=== PATIENT | female | born 1945 | race Caucasian/White ===

== ENCOUNTER 2020-08-17 09:58 | Inpatient (IN) ==
[2020-08-12 15:18] LABS: Basophils # (Auto) 0.04 K/mcL (0.00-0.20); Basophils % (Auto) 0.5 % (0.0-2.0); Eosinophils # (Auto) 0.12 K/mcL (0.00-0.70); Eosinophils % (Auto) 1.4 % (0.0-7.0); Hematocrit 38.4 % (36.0-48.0); Hemoglobin 12.7 g/dL (12.0-15.0); Lymphocytes # (Auto) 2.26 K/mcL (1.50-4.80); Lymphocytes % (Auto) 26.8 % (15.0-49.0); Mean Cell Volume 93.4 fL (80.0-100.0); Mean Corpuscular HGB Conc 33.1 g/dL (31.0-36.0); Mean Platelet Volume 11.8 fL (7.4-10.4); Monocytes # (Auto) 0.85 K/mcL (0.10-0.90); Monocytes % (Auto) 10.1 % (1.0-12.0); Neutrophils % (Auto) 61.2 % (38.0-78.0); Platelet Count 245 K/mcL (140-440); RBC 4.11 M/mcL (4.00-5.20); Red Cell Distribution Width 12.2 % (11.5-14.5); WBC 8.4 K/mcL (4.5-11.0)
[2020-08-12 15:51] LABS: Appearance,Urine CLEAR (Clear); Bilirubin,Urine Negative (Negative); Color,Urine YELLOW; Culture Indicated,Urine No; Glucose,Urine (UA) Negative (Negative); Ketones,Urine Negative (Negative); Leukocyte Esterase,Urine Negative /ug (Negative); Nitrate,Urine Negative (Negative); Protein,Urine Negative (Negative); Specific Gravity,Urine 1.009 (1.000-1.035); Urine Blood Negative (Negative); Urobilinogen,Urine Negative
[2020-08-12 16:52] LABS: Blood Urea Nitrogen 11 mg/dL (8-23); Calcium 9.5 mg/dL (8.6-10.4); Carbon Dioxide 23 mmol/L (22-30); Chloride 102 mmol/L (96-108); Glomerular Filtration Rate 90; Glucose 89 mg/dL (70-105)
[~2020-08-17 09:58] MED LIST: ACETAMINOPHEN 500 MG TABLET PO SCH; PREGABALIN 75 MG CAPSULE PO SCH; SCOPOLAMINE 1 PATCH PATCH TOPICAL PRN; oxyCODONE 10 MG TAB.ER.12H PO SCH
[2020-08-17] MEDS ORDERED: IPRATROPIUM/ALBUTEROL 3 ML AMPUL.NEB NEB PRN ×2 (10:30→12:30)
[2020-08-17] MEDS ORDERED: SCOPOLAMINE 1 PATCH PATCH TOPICAL PRN (10:30)
[2020-08-17] MEDS ORDERED: ceFAZolin 2 GM in DEXTROSE 5% IN WATER 50 ML IV SCH (11:00)
[2020-08-17] MEDS ORDERED: LIDOCAINE HCL/PF 100 MG/5 ML SYRINGE IV ONE (11:35)
[2020-08-17] MEDS ORDERED: ROPIVACAINE HCL/PF 30 ML VIAL IJ ONE (11:35)
[2020-08-17] MEDS ORDERED: fentaNYL 250 MCG/5 ML VIAL IV ONE (11:35)
[2020-08-17] MEDS ORDERED: DEXAMETHASONE 10 MG/ML VIAL ONE (11:35)
[2020-08-17] MEDS ORDERED: PROPOFOL 200 MG/20 ML VIAL IV ONE (11:35)
[2020-08-17] MEDS ORDERED: TRANEXAMIC ACID 1,000 MG/10 ML VIAL IV ONE ×2 (11:35→12:36)
[2020-08-17] MEDS ORDERED: SUCCINYLCHOLINE 20 MG/ML ML IV ONE (11:35)
[2020-08-17] MEDS ORDERED: KETAMINE 100 MG/ML ML ONE (11:35)
[2020-08-17] MEDS ORDERED: ONDANSETRON 4 MG/2 ML VIAL ONE (11:35)
[2020-08-17] MEDS ORDERED: ePHEDrine 50 MG/ML AMPUL IV ONE (11:35)
[2020-08-17] MEDS ORDERED: LACTATED RINGERS 1,000 ML IV SCH (12:30)
[2020-08-17] MEDS ORDERED: fentaNYL 100 MCG/2 ML VIAL IV PRN (12:30)
[2020-08-17] MEDS ORDERED: LACTATED RINGERS 250 ML IV PRN (12:30)
[2020-08-17] MEDS ORDERED: PROMETHAZINE 25 MG/ML VIAL IV PRN (12:30)
[2020-08-17] MEDS ORDERED: NALOXONE HCL 0.4 MG/ML VIAL IV PRN (12:30)
[2020-08-17] MEDS ORDERED: diphenhydrAMINE 50 MG/ML VIAL IV PRN (12:30)
[2020-08-17] MEDS ORDERED: MEPERIDINE 25 MG/ML SYRINGE IV PRN (12:30)
[2020-08-17] MEDS ORDERED: ONDANSETRON 4 MG/2 ML VIAL IV PRN ×2 (12:30→12:36)
[2020-08-17] MEDS ORDERED: ACETAMINOPHEN 325 MG TABLET PO PRN (12:36)
[2020-08-17] MEDS ORDERED: HYDROcodone/APAP 10/325MG TABLET PO PRN (12:36)
[2020-08-17] MEDS ORDERED: POLYETHYLENE GLYCOL 3350 17 GM PACKET PO PRN (12:36)
[2020-08-17] MEDS ORDERED: BISACODYL 10 MG SUPP.RECT PR PRN (12:36)
[2020-08-17] MEDS ORDERED: MAGNESIUM HYDROXIDE 30 ML ORAL.SUSP PO PRN (12:36)
[2020-08-17] MEDS ORDERED: KETOROLAC 15 MG/ML VIAL IV PRN (12:36)
[2020-08-17] MEDS ORDERED: TEMAZEPAM 15 MG CAPSULE PO PRN (12:36)
[2020-08-17] MEDS ORDERED: FLEETS ADULT ENEMA PR PRN (12:36)
[2020-08-17] MEDS ORDERED: HYDROmorphone 1 MG/ML SYRINGE IV PRN (12:36)
--- NOTE | 2020-08-17 12:36 | Brief Operative Note ---
Brief Operative Note Date of procedure: 08/17/20 Pre-op diagnosis: right shoulder rca and bicep tendonopathy Post-op diagnosis: same Procedure: Right reverse tsa with bicep tenodesis Grafts/Implants: Yes Anesthesia: GETA Complications: none Surgeon: Marin Vinson Ladies Attendant: Michi Olivas Estimated blood loss (cc): 100 Tourniquet Time (Minutes): 0 Specimens Removed/Pathology: none sent Condition: stable Disposition: PACU
--- NOTE | 2020-08-17 12:47 | Discharge Plan ---
Discharge Instructions - TSA Patient Instructions Total Shoulder Protocol: Leave immobilizer in place except for bathing and ROM. Abduction pillow. Continue to wear sling until seen by physician. Codman Pendulum : These exercises use momentum produced by your body to move your shoulder joint. Bend your knees and shift your weight to your front leg, then back, allowing your arm to swing in the same directions. Using the same technique, alternately shift your weight between your right and left legs, allowing your arm to swing from side to side. These exercises are also performed in counterclockwise and clockwise circular motions. Typically these exercises are performed several times per day, for a set number repetitions or minutes, such as 20 times in a row or 5 minutes at a time. Discharge Plan Patient/Caregiver Discharge Instructions Activity: as per physical therapy Prescriptions: New hydrocodone-acetaminophen 10-325 mg Tablet 1 - 2 tab PO Q4HP PRN (Reason: Pain Level 3-6) Qty: 75 RF: 0 docusate sodium 100 mg Capsule 100 mg PO BID Qty: 60 RF: 0 No Action atorvastatin 20 mg Tablet 20 mg PO QHS RF: 0 acyclovir 400 mg Tablet 400 mg PO QDAY RF: 0 leflunomide [Arava] 20 mg Tablet 20 mg PO QDAY RF: 0 tramadol 50 mg Tablet 50 mg PO DAILYP PRN (Reason: Pain) RF: 0 levothyroxine [Synthroid] 25 mcg Tablet 25 mcg PO QDAY RF: 0 calcium carbonate 500 mg calcium (1,250 mg) Tablet 1,000 mg PO QDAY RF: 0 triamterene-hydrochlorothiazid 37.5-25 mg Tablet 1 tab PO QDAY RF: 0 aspirin 81 mg Tablet,Chewable 81 mg PO QDAY RF: 0 vitamin B complex Tablet 1 tab PO QDAY RF: 0 montelukast [Singulair] 10 mg Tablet 10 mg PO QHS RF: 0 Rituxan 10 mg/mL Concentrate IV RF: 0 cholecalciferol (vitamin D3) [Vitamin D3] 25 mcg (1,000 unit) Tablet 25 mcg PO QDAY RF: 0 Other Ambulatory Orders: Brace/Splint (ONCE) Location: None Selected Ordered By: Michi Olivas Physical Therapy DC - TSA (Routine) Location: None Selected Ordered By: Michi Olivas Follow Up Plan Follow up with: Michi Olivas PA-C [Physician Boomswing Operator] - 09/01/20 11:20 am Patient Disposition: Home, Self-Care Prognosis: Good Rehab Potential: Good I certify that the patient requires SNF services: No Overall status at discharge: patient is progressing back to baseline Discharge Orders: Discharge Order (Routine); Ordered 08/18/20 Ordered By: Michi Olivas
--- NOTE | 2020-08-17 12:55 | Operative Note ---
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 PROCEDURE: Right reverse total shoulder with a biceps tenodesis. SURGEON: Marin Vinson M.D. FOOD AND NUTRITION SUPERVISOR: Michi Olivas PA-C. The PA's assistance was required for the safe and efficient completion of the entire case. This provider's expertise and technical skill were required throughout the case. The PA assisted with preoperative coordination, intraoperative retraction, wound closure, dressing and splint application, as well as postoperative documentation and care coordination. ANESTHESIA: General LMA anesthesia. COMPLICATIONS: None. ESTIMATED BLOOD LOSS: 100 mL. DESCRIPTION OF PROCEDURE: The patient was brought to the operating room and put to sleep with general anesthesia. Once asleep, the patient had the right shoulder sterilely prepped and draped in the usual sterile fashion. Timeout was performed confirming the operative site by initials, consent form, and x-rays. Once a protective layer was placed over the skin, we made a deltopectoral approach 4-inches in length from the lateral portion of the coracoid process to the insertion site of the deltoid. Once done, we irrigated thoroughly and made our incision. We retracted the deltoid and cephalic vein laterally and then retracted the conjoined tendon medially. We exposed the joint, released the subscap noting that there was no rotator cuff in the supraspinatus or infraspinatus. Once done, we then dislocated the humeral head and made our neck cut at 135 degrees with 20 degrees of retroversion. With this, we were able to then ream the acetabulum up to the size 36. Once we had 50% bleeding bone on the inferior half of the glenoid, we then placed the metaglene with a central screw measuring 32 mm with good purchase. Three additional screws were placed. All three were 28 mm screws and locked into place very nicely. We then chose a 2 mm offset, 2 mm of eccentricity glenosphere. It was tapped into place. Once done, we were able to then broach up on the humeral head up to the size of the 10 stem. We then cemented into place a size 10 stem with a standard thickness poly liner. Shoulder was stable throughout the arc of motion. Once the cement was dry, we controlled any bleeding. The biceps tenodesis was accomplished. After thorough irrigation and stability was accomplished, we then repaired the subscap back to the pectoralis major insertion site after roughening the bone. Three sutures were passed through the biceps tendon in the bicipital groove on the undersurface of the pectoralis. The patient tolerated this well. It seemed to give good repair. We took the elbow through range of motion to make sure it was stable. We irrigated thoroughly and then closed the deltoid with 2-0 Vicryl. We closed the skin with 3-0 Monocryl and adhesive closure. A DonJoy sling was fitted and given to the patient at the end of the case. Blood loss was approximately 100 mL. RBH:patricia Job ID: [id number] Doc ID: [id number] Marin Vinson MD
--- NOTE | 2020-08-17 13:15 | XRay Report ---
INDICATION: Post-OP Total Shoulder TECHNIQUE: AP and Y views of the right shoulder COMPARISON: Preoperative evaluation dated 11/16/2016 FINDINGS: Status post right reverse shoulder arthroplasty. Alignment is anatomic. There is postsurgical soft tissue gas present IMPRESSION: Reverse right shoulder arthroplasty Interpreted and Authenticated by: Zaid Garcia 08/17/20
[2020-08-17] MEDS: LACTATED RINGERS 1,000 ML IV SCH (13:45)
[2020-08-17] MEDS: BENZOCAINE/MENTHOL 1 LOZENGE PO PRN ×2 (14:16→19:46)
[2020-08-17] MEDS: 0.9 % SODIUM CHLORIDE 10 ML SYRINGE IV SCH ×2 (14:31→20:44)
[2020-08-17] MEDS: ceFAZolin 1 GM VIAL IV SCH (19:45)
[2020-08-17] MEDS: DOCUSATE SODIUM 100 MG CAPSULE PO SCH (20:40)
[2020-08-17] MEDS ORDERED: MONTELUKAST 10 MG TABLET PO SCH (21:00)
[2020-08-17] MEDS ORDERED: SENNOSIDES 1 TABLET PO SCH (21:00)
[2020-08-17] MEDS ORDERED: ATORVASTATIN 20 MG TABLET PO SCH (21:00)
[2020-08-18] MEDS: LACTATED RINGERS 1,000 ML IV SCH ×2 (00:46→09:12)
[2020-08-18] MEDS: ceFAZolin 1 GM VIAL IV SCH (03:24)
[2020-08-18] MEDS: 0.9 % SODIUM CHLORIDE 10 ML SYRINGE IV SCH ×2 (03:26→06:10)
[2020-08-18] MEDS ORDERED: LEVOTHYROXINE 25 MCG TABLET PO SCH (07:30)
--- NOTE | 2020-08-18 07:48 | Orthopedic Progress Note ---
SUBJECTIVE Subjective Patient information: Note initiated : 08/18/20 at 7:47 am Service Date, if different from initiated Date: [] Patient: Kaykay Wetzel 75 y/o F admitted on 08/17/20 for Right Reverse Total Shoulder Arthroplasty with. Chief Complaint: [Pt is stable this morning on post operative day without any significant concerns or complaints. Patients vital signs have remained stable. Patients dressing is dry and is grossly intact from a neurovascular and motor standpoint. Patients 10 point ROS is otherwise negative. ] Constitutional Vitals: Vital Signs Temp Pulse Resp BP Pulse Ox 98.6 F 77 18 128/58 96 08/18/20 07:28 08/18/20 07:28 08/18/20 07:28 08/18/20 07:28 08/18/20 07:28 Period Temp Pulse Resp BP Sys/Zavala Pulse Ox Last 24 Hr 97.0 F-98.7 F 70-81 14-19 125-179/58-81 89-100 Intake and Output 08/17/20 08/18/20 08/18/20 21:59 05:59 13:59 Intake Total 375 Output Total 1100 Balance -1100 375 Weight 148 lb 14.4 oz Intake & Output: Intake & Output 08/17/20 08/18/20 08/18/20 21:59 05:59 13:59 Intake Total 375 Output Total 1100 Balance -1100 375 Weight 148 lb 14.4 oz Intake: Oral 375 Output: Void Amount 1100 Other: Urine Appearance Clear Urine Color Bright Yellow Stool Size Small Stool Color Brown Stool Consistency Formed # Voids 1 # Bowel Movements 1 Extremities Exam Extremities exam: Present normal inspection, Foot pink and warm and neurovascular intact OBJ DATA Labs CBC & Chem 7: 08/12/20 11:56 08/12/20 11:56 Meds: Medications Acetaminophen (Tylenol) 650 mg PO Q6HP PRN PRN Reason: PAIN/FEVER > 101 Last Admin: 08/17/20 20:40 Dose: 650 mg Documented by: Hydrocodone Bitart/Acetaminophen ([place] 10/325mg) 0 tab PO Q4HP PRN PRN Reason: PAIN LEVEL 3-6 Acyclovir (Zovirax) 400 mg PO QDAY [facility]; Protocol Aspirin (Aspirin) 81 mg PO QDAY DONYA Atorvastatin Calcium (Lipitor) 20 mg PO QHS DONYA Last Admin: 08/17/20 20:40 Dose: 20 mg Documented by: Bisacodyl (Dulcolax) 10 mg VA Q2-3DAYS PRN PRN Reason: Constipation Calcium Carbonate/Glycine (Oscal) 1,000 mg PO QDAY [facility] Docusate Sodium (Colace) 100 mg PO BID [facility] Last Admin: 08/17/20 20:40 Dose: 100 mg Documented by: Hydromorphone HCl (Dilaudid) 0 mg IV Q2HP PRN; Protocol PRN Reason: Per Pain Protocol Lactated Ringer's (Lactated Ringers) 1,000 mls @ 100 mls/hr IV .Q10H [facility] Last Admin: 08/18/20 00:46 Dose: Not Given Documented by: Ketorolac Tromethamine (Toradol) 15 mg IV Q6HP PRN PRN Reason: Pain Stop: 08/19/20 12:36 Last Admin: 08/18/20 06:33 Dose: 15 mg Documented by: Leflunomide (Arava) 20 mg PO QDAY [facility] Levothyroxine Sodium (Synthroid) 25 mcg PO QAMAC [facility] Last Admin: 08/18/20 06:34 Dose: 25 mcg Documented by: Magnesium Hydroxide (Milk Of Magnesia) 30 ml PO BIDP PRN PRN Reason: Constipation Montelukast Sodium (Singular) 10 mg PO QHS [facility] Last Admin: 08/17/20 20:40 Dose: 10 mg Documented by: Ondansetron HCl (Zofran) 4 mg IV Q4HP PRN PRN Reason: Nausea And Vomiting Polyethylene Glycol (Miralax) 17 gm PO DAILYP PRN PRN Reason: Constipation Senna (Senokot) 2 tab PO HS [facility] Last Admin: 08/17/20 20:41 Dose: 2 tab Documented by: Sodium Biphosphate/Sodium Phosphate (Fleets Adult) 1 dose VA Q3-4DAYS PRN PRN Reason: Constipation Sodium Chloride (Saline Flush) 10 ml IV Q8 [facility] Last Admin: 08/18/20 06:10 Dose: Not Given Documented by: Temazepam (Restoril) 15 mg PO HSP PRN PRN Reason: Insomnia Throat Lozenges (Cepacol) 1 lozenge PO PRN PRN PRN Reason: Sore Throat Last Admin: 08/17/20 19:46 Dose: 1 lozenge Documented by: Triamterene/HCTZ (Maxzide 25) 1 cap PO DAILY DONYA Vitamin B Complex (Vitamin B Complex) 1 cap PO DAILY DONYA Vitamin D (Vitamin D3) 1,000 unit PO DAILY DONYA A/P Narrative A/P Narrative: The patient has been educated regarding dressing care, Physical Therapy recommendations, home exercises, restrictions, and follow up appo intments. The patient has had all necessary DME prescribed. The patient has remained relatively stable during their hospital course. Time Spent With Patient Time: Total time spent is greater than 50% in coordination of care (as documented) at patient's floor/unit and/or counseling patient: Total time spent with greater than 50% in coordination of care (as documented) at patient's floor/unit and/or counseling patient:: less than 15 minutes
[2020-08-18] MEDS: DOCUSATE SODIUM 100 MG CAPSULE PO SCH (08:19)
[2020-08-18] MEDS ORDERED: VITAMIN D3 1,000 UNIT TABLET PO SCH (09:00)
[2020-08-18] MEDS ORDERED: CALCIUM (OYSTER SHELL) 500 MG TABLET PO SCH (09:00)
[2020-08-18] MEDS ORDERED: ASPIRIN 81 MG TAB.CHEW PO SCH (09:00)
[2020-08-18] MEDS ORDERED: TRIAMTERENE/HYDROCHLOROTHIAZID 1 CAP CAPSULE PO SCH (09:00)
[2020-08-18] MEDS ORDERED: ACYCLOVIR 400 MG TABLET PO SCH (09:00)
[2020-08-18] MEDS ORDERED: LEFLUNOMIDE 20 MG TABLET PO SCH (09:00)
[2020-08-18] MEDS ORDERED: VITAMIN B COMPLEX 1 CAPSULE PO SCH (09:00)
== END 2020-08-18 11:15 | disposition home or self-care (01) | DRG 483 ==
LOC: MEDSUR 09:58
PROVIDERS: ADMIT Orthopaedic Surgery; ATTEND Orthopaedic Surgery